=== PATIENT | male | born 1970 | race Caucasian/White ===

== ENCOUNTER 2018-01-22 11:16 | Emergency (ER) | payer OTHER ==
[~2018-01-22] VITALS: Ht 182.9 cm; Wt 106.6 kg
[~2018-01-22 11:16] MED LIST: ACETAMINOPHEN-1 EAC1 PO; ADDERALL 30 MG30 MG; ADDERALL 30 MG30 MG PO; ALBUTEROL2.5 MG/0.1; ALBUTEROL2.5 MG/31 INH; AMITRIPTYLINE H25 M2 PO; AMITRIPTYLINE H25 M3 PO; ATENOLOL 50 MG50 M1 PO; ATENOLOL 50MG T50 M1 PO; CLEOCIN HCL150 M1; CLEOCIN HCL150 MG PO; CLEOCIN HCL300 MG PO; ERYTHROMYCIN250 MG PO; FLOMAX0.4 MG; FLOMAX0.4 MG PO; HYDROCODONE-AP1 EAC6 PO; IBUPROFEN 800800 MG PO; INDOMETHACIN 2525 MG PO; LIDOCAINE VISC100 M1 SWISH&SPIT; LIDODERM 5%1 PATC1 TRANSDERM; LISINOPRIL20 MG PO; MOBIC15 MG PO; NOHOMEMEDICATIONS; NORCO 5-325 TA1 EACH PO; NORFLEX100 MG PO; ONDANSETRON HCL4 M2 PO; PRINIVIL20 MG PO; PROVENTIL; TAMSULOSIN HCL0.4 M1; TAMSULOSIN HCL0.4 M1 PO; TOPROL XL100 MG PO; TOPROL XL50 MG PO; TRAMADOL 50 MG50 MG PO; ULTRAM 50MG TAB50 MG PO; WELLBUTRIN XL150 MG PO; WELLBUTRIN75 MG PO; ZOFRAN ODT4 MG PO; ZOFRAN4 MG PO; [UNRECOGNIZED DRUG - OTHER]
[2018-01-22 12:46] LABS: URINE BILIRUBIN NEGATIVE (Negative); URINE BLOOD NEGATIVE (Negative); URINE CLARITY CLEAR; URINE COLOR YELLOW; URINE GLUCOSE-RANDOM* NEGATIVE (Negative); URINE KETONES NEGATIVE (Negative); URINE LEUKOCYTES-REFLEX NEGATIVE (Negative); URINE NITRITE-REFLEX NEGATIVE (Negative); URINE PROTEIN (DIPSTICK) NEGATIVE (Negative); URINE UROBILINOGEN 0.2 E.U./dl (0.2-1.0)
[2018-01-22 13:00] LABS: ABSOLUTE NEUTROPHILS 5.9 thou/uL (1.4-8.2); BASOPHILS 0.3 % (0.0-2.0); EOSINOPHILS 0.6 % (0.0-3.0); HEMOGLOBIN 15.9 gm/dL (14.0-18.0); MCHC 35.4 g/dL (28.0-37.0); MCV 96.1 fL (80.0-100.0); MONOCYTES 6.1 % (1.0-8.0); PLATELET COUNT 263 thou/uL (150-400); RBC 4.69 mil/uL (4.50-6.00); RDW 12.8 % (10.5-14.5); WBC 7.8 thou/uL (4.0-11.0)
[2018-01-22 13:22] LABS: CALCIUM 8.8 mg/dL (8.5-10.1); CREATININE 0.9 mg/dL (0.7-1.3); POTASSIUM 4.1 mmol/L (3.5-5.1)
[2018-01-22 13:27] LABS: ALBUMIN 3.7 g/dL (3.4-5.0); TOTAL BILIRUBIN 0.3 mg/dL (<0.1-1.0); TOTAL PROTEIN 6.8 g/dL (6.4-8.2)
[2018-01-22] MEDS ORDERED: TRAMADOL 50 MG50 MG PO (13:33)
[2018-01-22 14:07] VITALS: BP 152/78
== END 2018-01-22 14:08 | disposition home or self-care (01) ==
LOC: ER 11:16
PROVIDERS: Physician Assistant
DX: R10.9 Unspecified abdominal pain (principal); R31.9 Hematuria, unspecified; I10 Essential (primary) hypertension; G43.909 Migraine, unspecified, not intractable, without status migrainosus; F17.210 Nicotine dependence, cigarettes, uncomplicated; Z88.0 Allergy status to penicillin; Z88.2 Allergy status to sulfonamides; Z88.5 Allergy status to narcotic agent; Z88.6 Allergy status to analgesic agent

== ENCOUNTER 2018-04-11 14:01 | Emergency (ER) | payer OTHER ==
[~2018-04-11] VITALS: Ht 182.9 cm; Wt 106.6 kg
[~2018-04-11 14:01] MED LIST changes: +LEVSIN0.125 MG PO; +NORVASC10 MG PO
[2018-04-11 14:02] VITALS: BP 161/92
[2018-04-11] MEDS ORDERED: CLEOCIN HCL150 MG PO (14:27)
[2018-04-12] MEDS ORDERED: LISINOPRIL20 MG PO (06:24)
== END 2018-04-11 14:52 | disposition home or self-care (01) ==
LOC: ER 14:01
DX: K02.9 Dental caries, unspecified (principal); I10 Essential (primary) hypertension; G43.909 Migraine, unspecified, not intractable, without status migrainosus; F90.9 Attention-deficit hyperactivity disorder, unspecified type; F17.210 Nicotine dependence, cigarettes, uncomplicated; Z88.5 Allergy status to narcotic agent; Z88.0 Allergy status to penicillin; Z88.2 Allergy status to sulfonamides; Z88.6 Allergy status to analgesic agent; Z88.8 Allergy status to other drugs, medicaments and biological substances; Z87.442 Personal history of urinary calculi

== ENCOUNTER 2018-04-12 06:16 | Emergency (ER) | payer OTHER ==
[~2018-04-12] VITALS: Ht 182.9 cm; Wt 106.6 kg
[2018-04-12] MEDS ORDERED: LISINOPRIL20 MG PO (06:24)
[2018-04-12 07:21] LABS: HEMATOCRIT 41.3 % (42.0-52.0); HEMOGLOBIN 14.6 gm/dL (14.0-18.0); MCH 34.1 pg (26.0-34.0); MCHC 35.3 g/dL (28.0-37.0); MCV 96.6 fL (80.0-100.0); RBC 4.27 mil/uL (4.50-6.00); RDW 12.9 % (10.5-14.5)
[2018-04-12 07:29] LABS: CALCIUM 8.8 mg/dL (8.5-10.1); POTASSIUM 3.6 mmol/L (3.5-5.1)
[2018-04-12 07:42] LABS: URINE BILIRUBIN NEGATIVE (Negative); URINE BLOOD NEGATIVE (Negative); URINE CLARITY CLEAR; URINE COLOR YELLOW; URINE GLUCOSE-RANDOM* NEGATIVE (Negative); URINE KETONES NEGATIVE (Negative); URINE LEUKOCYTES-REFLEX NEGATIVE (Negative); URINE NITRITE-REFLEX NEGATIVE (Negative); URINE PROTEIN (DIPSTICK) NEGATIVE (Negative); URINE SPECIFIC GRAVITY 1.025 (1.005-1.035); URINE UROBILINOGEN 0.2 E.U./dl (0.2-1.0)
[2018-04-12 08:00] VITALS: BP 155/89
== END 2018-04-12 08:08 | disposition home or self-care (01) ==
LOC: ER 06:16
PROVIDERS: Emergency Medicine
DX: R30.0 Dysuria (principal); R11.10 Vomiting, unspecified; M54.9 Dorsalgia, unspecified; F17.210 Nicotine dependence, cigarettes, uncomplicated; I10 Essential (primary) hypertension; G43.909 Migraine, unspecified, not intractable, without status migrainosus; Z88.8 Allergy status to other drugs, medicaments and biological substances; Z88.5 Allergy status to narcotic agent; Z88.6 Allergy status to analgesic agent; Z88.0 Allergy status to penicillin; Z88.2 Allergy status to sulfonamides; Z87.442 Personal history of urinary calculi; Z90.89 Acquired absence of other organs

== ENCOUNTER 2018-11-05 11:15 | Emergency (ER) | payer OTHER ==
[~2018-11-05] VITALS: Ht 182.9 cm; Wt 99.8 kg
[2018-11-05 11:56] LABS: URINE BILIRUBIN NEGATIVE (Negative); URINE BLOOD TRACE (Negative); URINE CLARITY CLEAR; URINE COLOR YELLOW; URINE GLUCOSE-RANDOM* NEGATIVE (Negative); URINE KETONES NEGATIVE (Negative); URINE LEUKOCYTES-REFLEX NEGATIVE (Negative); URINE NITRITE-REFLEX NEGATIVE (Negative); URINE PROTEIN (DIPSTICK) NEGATIVE (Negative); URINE SPECIFIC GRAVITY 1.025 (1.005-1.035); URINE UROBILINOGEN 0.2 E.U./dl (0.2-1.0)
[2018-11-05 12:58] VITALS: BP 151/86
== END 2018-11-05 13:19 | disposition left against medical advice (07) ==
LOC: ER 11:15
PROVIDERS: Nurse Practitioner Family
DX: R10.9 Unspecified abdominal pain (principal); Z76.5 Malingerer [conscious simulation]; F17.210 Nicotine dependence, cigarettes, uncomplicated; I10 Essential (primary) hypertension; G43.909 Migraine, unspecified, not intractable, without status migrainosus; F90.9 Attention-deficit hyperactivity disorder, unspecified type; Z88.8 Allergy status to other drugs, medicaments and biological substances; Z88.5 Allergy status to narcotic agent; Z88.6 Allergy status to analgesic agent; Z88.0 Allergy status to penicillin; Z88.2 Allergy status to sulfonamides; Z87.442 Personal history of urinary calculi; Z90.89 Acquired absence of other organs

== ENCOUNTER 2019-02-06 19:12 | Emergency (ER) | payer OTHER ==
[~2019-02-06] VITALS: Ht 182.9 cm; Wt 104.3 kg
[2019-02-06 19:32] VITALS: BP 182/102
== END 2019-02-06 20:25 | disposition home or self-care (01) ==
LOC: ER 19:12
DX: K02.9 Dental caries, unspecified (principal); I10 Essential (primary) hypertension; G43.909 Migraine, unspecified, not intractable, without status migrainosus; F17.210 Nicotine dependence, cigarettes, uncomplicated; Z87.442 Personal history of urinary calculi; Z88.0 Allergy status to penicillin; Z88.5 Allergy status to narcotic agent; Z88.6 Allergy status to analgesic agent; Z88.8 Allergy status to other drugs, medicaments and biological substances

== ENCOUNTER 2019-03-28 13:39 | Emergency (ER) | payer OTHER ==
[~2019-03-28] VITALS: Ht 182.9 cm; Wt 99.3 kg
[2019-03-28 13:40] VITALS: BP 170/93
[2019-03-28] MEDS ORDERED: ORAL ANALGESIC9 GM TOP ×2 (14:09)
== END 2019-03-28 15:00 | disposition home or self-care (01) ==
LOC: ER 13:39
DX: K00.7 Teething syndrome (principal); G43.909 Migraine, unspecified, not intractable, without status migrainosus; K08.89 Other specified disorders of teeth and supporting structures; F17.210 Nicotine dependence, cigarettes, uncomplicated; I10 Essential (primary) hypertension; F90.9 Attention-deficit hyperactivity disorder, unspecified type; Z88.5 Allergy status to narcotic agent; Z88.6 Allergy status to analgesic agent; Z88.8 Allergy status to other drugs, medicaments and biological substances; Z88.2 Allergy status to sulfonamides; Z88.0 Allergy status to penicillin; Z87.442 Personal history of urinary calculi; Z90.89 Acquired absence of other organs

== ENCOUNTER 2019-03-30 15:47 | Emergency (ER) | payer OTHER ==
[~2019-03-30] VITALS: Ht 182.9 cm; Wt 99.3 kg
[~2019-03-30 15:47] MED LIST changes: +ORAL ANALGESIC9 GM TOP
[2019-03-30] MEDS ORDERED: BACTRIM DS TAB1 EACH PO (17:42)
[2019-03-30] MEDS ORDERED: KEFLEX500 M1 PO ×3 (17:46→17:47)
[2019-03-30 18:02] VITALS: BP 154/103
== END 2019-03-30 18:00 | disposition home or self-care (01) ==
LOC: ER 15:47
DX: L03.115 Cellulitis of right lower limb (principal); G43.909 Migraine, unspecified, not intractable, without status migrainosus; F90.9 Attention-deficit hyperactivity disorder, unspecified type; F17.210 Nicotine dependence, cigarettes, uncomplicated; Z88.6 Allergy status to analgesic agent; Z88.0 Allergy status to penicillin; Z88.2 Allergy status to sulfonamides; Z88.1 Allergy status to other antibiotic agents; Z88.8 Allergy status to other drugs, medicaments and biological substances; Z87.442 Personal history of urinary calculi; Z98.890 Other specified postprocedural states

== ENCOUNTER 2019-06-19 10:30 | Emergency (ER) | payer OTHER ==
[~2019-06-19] VITALS: Ht 182.9 cm; Wt 100.2 kg
[~2019-06-19 10:30] MED LIST changes: +BACTRIM DS TAB1 EACH PO; +KEFLEX500 M1 PO
[2019-06-19 11:01] LABS: URINE BILIRUBIN NEGATIVE (Negative); URINE BLOOD 1+ (Negative); URINE CLARITY CLEAR; URINE COLOR YELLOW; URINE GLUCOSE-RANDOM* NEGATIVE (Negative); URINE KETONES NEGATIVE (Negative); URINE LEUKOCYTES-REFLEX NEGATIVE (Negative); URINE NITRITE-REFLEX NEGATIVE (Negative); URINE PROTEIN (DIPSTICK) TRACE (Negative)
[2019-06-19 11:03] LABS: WBC 7.1 thou/uL (4.0-11.0)
[2019-06-19 11:05] LABS: HEMATOCRIT 44.6 % (42.0-52.0); HEMOGLOBIN 15.5 gm/dL (14.0-18.0); MCH 33.9 pg (26.0-34.0); MCHC 34.8 g/dL (28.0-37.0); MCV 97.2 fL (80.0-100.0); RBC 4.59 mil/uL (4.50-6.00); RDW 12.9 % (10.5-14.5)
[2019-06-19 11:09] LABS: CALCIUM 9.8 mg/dL (8.5-10.1); CREATININE 0.9 mg/dL (0.7-1.3); POTASSIUM 3.4 mmol/L (3.5-5.1)
[2019-06-19 11:15] LABS: ALBUMIN 4.3 g/dL (3.4-5.0); TOTAL BILIRUBIN 0.4 mg/dL (<0.1-1.0); TOTAL PROTEIN 8.4 g/dL (6.4-8.2)
[2019-06-19 11:29] LABS: CASTS None Seen /LPF (None Seen); SQUAMOUS None Seen /LPF (0-3); URINE WBC-REFLEX 0-5 Rare /HPF (0-5)
[2019-06-19 11:30] LABS: BACTERIA-REFLEX 1-9 Few /HPF (None Seen); CRYSTALS None Seen /LPF (None Seen); MUCUS 0-3 Light strn/LPF (None Seen); URINE RBC 0-2 Rare /HPF (0-2)
[2019-06-19 11:43] LABS: ABSOLUTE NEUTROPHILS 5.5 thou/uL (1.4-8.2); PLATELET COUNT 267 thou/uL (150-400); PLATELET ESTIMATE NORMAL
[2019-06-19 12:26] VITALS: BP 153/103
== END 2019-06-19 13:08 | disposition home or self-care (01) ==
LOC: ER 10:30
PROVIDERS: Physician Assistant
DX: N23 Unspecified renal colic (principal); I10 Essential (primary) hypertension; G43.909 Migraine, unspecified, not intractable, without status migrainosus; F90.9 Attention-deficit hyperactivity disorder, unspecified type; F17.210 Nicotine dependence, cigarettes, uncomplicated; Z90.89 Acquired absence of other organs; Z88.6 Allergy status to analgesic agent; Z88.5 Allergy status to narcotic agent; Z88.2 Allergy status to sulfonamides; Z88.8 Allergy status to other drugs, medicaments and biological substances; Z88.0 Allergy status to penicillin

== ENCOUNTER 2019-07-17 15:34 | Emergency (ER) | payer OTHER ==
[~2019-07-17] VITALS: Ht 182.9 cm; Wt 100.2 kg
[2019-07-17 15:35] VITALS: BP 162/103
[2019-07-17] MEDS ORDERED: KEFLEX500 M1 PO (16:43)
== END 2019-07-17 16:45 | disposition home or self-care (01) ==
LOC: ER 15:34
DX: K08.89 Other specified disorders of teeth and supporting structures (principal); Z76.5 Malingerer [conscious simulation]; I10 Essential (primary) hypertension; F90.9 Attention-deficit hyperactivity disorder, unspecified type; G43.909 Migraine, unspecified, not intractable, without status migrainosus; F17.210 Nicotine dependence, cigarettes, uncomplicated; Z88.6 Allergy status to analgesic agent; Z88.5 Allergy status to narcotic agent; Z88.0 Allergy status to penicillin; Z88.1 Allergy status to other antibiotic agents; Z88.8 Allergy status to other drugs, medicaments and biological substances; Z87.442 Personal history of urinary calculi

== ENCOUNTER 2019-10-04 12:34 | Emergency (ER) | payer OTHER ==
[~2019-10-04] VITALS: Ht 182.9 cm; Wt 99.8 kg
[2019-10-04 13:42] LABS: URINE BILIRUBIN NEGATIVE (Negative); URINE BLOOD TRACE (Negative); URINE CLARITY CLEAR; URINE COLOR YELLOW; URINE GLUCOSE-RANDOM* NEGATIVE (Negative); URINE KETONES NEGATIVE (Negative); URINE LEUKOCYTES-REFLEX NEGATIVE (Negative); URINE NITRITE-REFLEX NEGATIVE (Negative); URINE PROTEIN (DIPSTICK) NEGATIVE (Negative); URINE SPECIFIC GRAVITY >= 1.030 (1.005-1.035); URINE UROBILINOGEN 0.2 E.U./dl (0.2-1.0)
[2019-10-04] MEDS ORDERED: DEPAKOTE500 MG PO (13:49)
[2019-10-04] MEDS ORDERED: LOVASTATIN 20 M20 MG PO (13:49)
[2019-10-04] MEDS ORDERED: ADDERALL 30 MG30 MG PO (13:49)
[2019-10-04 14:23] LABS: ABSOLUTE NEUTROPHILS 3.5 thou/uL (1.4-8.2); BASOPHILS 0.4 % (0.0-2.0); EOSINOPHILS 1.3 % (0.0-3.0); HEMATOCRIT 43.2 % (42.0-52.0); HEMOGLOBIN 14.6 gm/dL (14.0-18.0); LYMPHOCYTES 23.3 % (24.0-44.0); MCH 32.4 pg (26.0-34.0); MCHC 33.7 g/dL (28.0-37.0); MCV 96.1 fL (80.0-100.0); PLATELET COUNT 260 thou/uL (150-400); RDW 12.8 % (10.5-14.5); WBC 5.6 thou/uL (4.0-11.0)
[2019-10-04 14:32] LABS: CALCIUM 8.7 mg/dL (8.5-10.1); POTASSIUM 3.7 mmol/L (3.5-5.1)
[2019-10-04 14:39] LABS: TOTAL BILIRUBIN 0.3 mg/dL (<0.1-1.0); TOTAL PROTEIN 8.1 g/dL (6.4-8.2)
[2019-10-04 16:49] VITALS: BP 147/91
[2019-10-04] MEDS ORDERED: TRAMADOL 50 MG50 MG PO (17:00)
== END 2019-10-05 00:08 | disposition home or self-care (01) ==
LOC: ER 12:34
PROVIDERS: Emergency Medicine
DX: N20.0 Calculus of kidney (principal); I10 Essential (primary) hypertension; G43.909 Migraine, unspecified, not intractable, without status migrainosus; F90.9 Attention-deficit hyperactivity disorder, unspecified type; F17.210 Nicotine dependence, cigarettes, uncomplicated; Z87.442 Personal history of urinary calculi; Z90.49 Acquired absence of other specified parts of digestive tract; Z88.0 Allergy status to penicillin; Z88.1 Allergy status to other antibiotic agents; Z88.6 Allergy status to analgesic agent; Z88.8 Allergy status to other drugs, medicaments and biological substances

== ENCOUNTER 2019-10-07 08:17 | Inpatient (IN) | payer OTHER ==
[~2019-10-07] VITALS: Ht 182.9 cm; Wt 97.8 kg
[~2019-10-07 08:17] MED LIST changes: +DEPAKOTE500 MG PO; +LOVASTATIN 20 M20 MG PO
[2019-10-07 08:23] VITALS: BP 179/110
[2019-10-07 08:34] LABS: URINE BILIRUBIN NEGATIVE (Negative); URINE BLOOD TRACE (Negative); URINE CLARITY CLEAR; URINE COLOR YELLOW; URINE GLUCOSE-RANDOM* NEGATIVE (Negative); URINE KETONES NEGATIVE (Negative); URINE LEUKOCYTES-REFLEX NEGATIVE (Negative); URINE NITRITE-REFLEX NEGATIVE (Negative); URINE PROTEIN (DIPSTICK) NEGATIVE (Negative)
[2019-10-07 08:40] LABS: ABSOLUTE NEUTROPHILS 3.4 thou/uL (1.4-8.2); BASOPHILS 0.5 % (0.0-2.0); EOSINOPHILS 1.5 % (0.0-3.0); HEMATOCRIT 45.3 % (42.0-52.0); HEMOGLOBIN 15.3 gm/dL (14.0-18.0); LYMPHOCYTES 20.3 % (24.0-44.0); MCH 32.3 pg (26.0-34.0); MCHC 33.7 g/dL (28.0-37.0); MONOCYTES 8.6 % (1.0-8.0); PLATELET COUNT 257 thou/uL (150-400); POLYS 69.1 % (36.0-66.0); RBC 4.72 mil/uL (4.50-6.00); RDW 12.8 % (10.5-14.5); WBC 4.9 thou/uL (4.0-11.0)
[2019-10-07 08:44] LABS: AMP/METHAMP Negative (Negative); BARBITURATES Negative (Negative); BENZODIAZEPINES Negative (Negative); COCAINE Negative (Negative); METHADONE Negative (Negative); OPIATES POSITIVE (Negative); PCP Negative (Negative)
[2019-10-07 08:47] LABS: ANION GAP 8 mmol/L (7-16); BUN 17 mg/dL (7-18); CHLORIDE 100 mmol/L (98-107); CO2 28 mmol/L (21-32); CREATININE 0.9 mg/dL (0.7-1.3); GLUCOSE 96 mg/dL (74-106); SODIUM 136 mmol/L (136-145)
[2019-10-07 08:54] LABS: ALBUMIN 4.5 g/dL (3.4-5.0); DIRECT BILIRUBIN < 0.1 mg/dL (<0.1-0.2); SGOT 15 U/L (15-37); SGPT 24 U/L (30-65); TOTAL BILIRUBIN 0.4 mg/dL (<0.1-1.0); TOTAL PROTEIN 8.6 g/dL (6.4-8.2)
[2019-10-07 15:57] VITALS: BP 157/92
--- NOTE | 2019-10-07 17:03 | NUR ---
PT ARRIVED ON THE UNIT @ 1455 WITH THE ASSIST OF AN NURSING AID. PT ALERT AND ORIENTED X 4. NO COMPLICATIONS NOTED POST TRANSFER. PT COMPLAINS OF MEDICATIONS DOSE AVIALABLE, DR GILL INFORMED, NEW ORDERS RECIEVED.
[2019-10-07 20:00] VITALS: BP 168/89
[2019-10-08] VITALS: BP 141/75
[2019-10-08 02:06] LABS: GLYCOHEMOGLOBIN (HGB A1C) 5.3 % (4.8-5.6)
[2019-10-08 04:00] VITALS: BP 141/75; BP 143/80
--- NOTE | 2019-10-08 04:51 | NUR ---
ASSESSMENT: PT REMAIN ALERT AND ORIENT TIMES FOUR. UP AD ALISSA TO TOILET. VSS, AFEBRILE. C/O LEFT FLANK PAIN. PRN PAIN MEDS GIVEN WITH PARTIAL RELIEF PER PT. PT'S S/O AT THE BEDSIDE. PT REFUSED US EARLIER DURING THE DAY AND STATE THAT HE WOULD THINK ABOUT HAVING US OF CAROTID TODAY, " LONG THEY DON'T WAKE HIM UP TOO EARLY". PT IS ALSO SCHEDULED FOR MRI WELL. PT REFUSES TO FOLLOW A HEART HEALTHY DIET. DENIES HEMATURIA. DID HAVE A LARGE FOUL SMELLING BM. PT DID NOT WANT TO HAVE A FLU VACCINATION. PT WENT ASLEEP AT APPROXIMATELY 0130. NIH SCORE WAS 2 + DRIFT UPPER/LOWER EXTREMITIES. SR PER MONITOR. WILL CONTINUE TO MONITOR.
[2019-10-08 05:56] LABS: CHOLESTEROL 120 mg/dL (<200); HDL CHOLESTEROL 33 mg/dL (>40); LDL CHOLESTEROL 71 mg/dL (<100); TC:HDL 3.6 Ratio (Not establshd); TRIGLYCERIDE 82 mg/dL (<150); VLDL 16 mg/dL (<40)
[2019-10-08 05:57] LABS: SERUM ASSESSMENT Clear
[2019-10-08 08:07] VITALS: BP 141/79
--- NOTE | 2019-10-08 11:43 | 2DMMODE ---
[facility] [address] [place] [address] 2 D/M-MODE ECHOCARDIOGRAM Name: NATALIE THOMAS Room #: 250-P ADM IN M.R.#: [id number] Admission: 10/07/19 Attend Phys: Pina Álvarez MD Discharge: Date of : 66 Report #: [id number] THIS REPORT FOR: cc: [facility] - Clinic physician unknown [facility] - Clinic physician unknown Rashaun Mcintosh MD ~ APPROVED REPORT Study performed: 10/08/2019 09:55:36 EXAM: Comprehensive 2D, Doppler, and color-flow Echocardiogram Patient Location: ICU Room #: 250 Status: routine BSA: 2.20 HR: 89 bpm BP: 140/80 mmHg Rhythm: NSR Other Information Study Quality: Good Indications CVA/TIA HTN urgency Echo Enhancing Agent Indication: Rule out Shunt Agent(s) / Amount(s) Used: Agitated Saline 6 cc 2D Dimensions RVDd: 37.13 mm IVSd: 11.63 (7-11mm) LVOT Diam: 24.12 (18-24mm) LVDd: 43.36 mm PWd: 12.21 (7-11mm) Ascending Ao: 30.96 (22-36mm) LVDs: 33.51 (25-40mm) Aortic Root: 34.56 mm IVC: 18.00 mm Volumes Left Atrial Volume (Systole) Single Plane 4CH: 23.26 mL Single Plane 2CH: 114.58 mL LA ESV Index: 27.00 mL/m2 Aortic Valve [facility] [address] [place] [address] 2 D/M-MODE ECHOCARDIOGRAM Name: NATALIE THOMAS Room #: 250-P [facility] IN .R.#: [id number] Admission: 10/07/19 Attend Phys: Pina Álvarez, Discharge: Date of : 66 Report #: [id number] AoV Peak Haider.: 1.19 m/s AO Peak Gr.: 5.71 mmHg LVOT Max P.07 mmHg LVOT Max V: 1.01 m/s BERTHA Vmax: 3.85 cm2 Mitral Valve E/A Ratio: 1.3 MV Decel. Time: 138.03 ms MV E Max Haider.: 0.84 m/s MV A Haider.: 0.63 m/s MV PHT: 40.03 ms IVRT: 121.11 ms Pulmonary Valve PV Peak Haider.: 1.06 m/s PV Peak Gr.: 4.52 mmHg Pulmonary Vein P Vein S: 0.56 m/s P Vein A: 0.26 m/s P Vein D: 0.48 m/s P Vein A Dur.: 92.3 msec P Vein S/D Ratio: 1.17 Tricuspid Valve RAP Estimate: 5.00 mmHg Left Ventricle The left ventricle is normal size. Mild concentric left ventricular hypertrophy. The left ventricular systolic function is normal. The left ventricular ejection fraction is within the normal range. LVEF is 55%. The left ventricular diastolic function is normal. Right Ventricle The right ventricle is normal size. The right ventricular systolic function is normal. Atria The left atrium size is normal. No shunting by contrast bubble injection. Right atrium is at the upper limits of normal. Aortic Valve The aortic valve is normal in structure. No aortic regurgitation is present. There is no aortic valvular stenosis. Mitral Valve The mitral valve is normal in structure. Moderate mitral regurgitation. No evidence of mitral valve stenosis. [facility] [place] [address] 2 D/M-MODE ECHOCARDIOGRAM Name: NATALIE THOMAS Room #: 250-P [facility] IN M.R.#: [id number] Admission: 10/07/19 Attend Phys: Pina Álvarez, Discharge: Date of : 66 Report #: [id number] Tricuspid Valve The tricuspid valve is normal in structure. There is no tricuspid valve regurgitation noted. Unable to assess PA pressure. Pulmonic Valve The pulmonary valve is normal in structure. Trace pulmonic regurgitation. Great Vessels The aortic root is normal in size. IVC is normal in size and collapses >50% with inspiration. Pericardium There is no pericardial effusion. <Conclusion> The left ventricle is normal size. LVEF is 55%. The aortic valve is normal in structure. The mitral valve is normal in structure. Moderate mitral regurgitation. The tricuspid valve is normal in structure. There is no tricuspid valve regurgitation noted. Unable to assess PA pressure. The pulmonary valve is normal in structure. Trace pulmonic regurgitation. There is no pericardial effusion. No shunting by contrast bubble injection. <ELECTRONICALLY SIGNED> By: Rashaun Mcintosh MD 10/08/19 1142 1142 1142 Rashaun Mcintosh MD /INF
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
[2019-10-08] MEDS ORDERED: CLARITIN10 M2 PO (13:47)
[2019-10-08] MEDS ORDERED: CLOPIDOGREL75 MG PO (13:48)
[2019-10-08] MEDS ORDERED: LIPITOR40 MG PO (13:49)
[2019-10-08] MEDS ORDERED: GABAPENTIN 100100 MG PO (13:49)
[2019-10-08] MEDS ORDERED: FLONASE 0.05%50 MCG NASAL (13:50)
[2019-10-08] MEDS ORDERED: PEPCID20 MG PO (13:50)
[2019-10-08] MEDS ORDERED: AZITHROMYCIN500 MG PO (13:51)
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
[2019-10-08 16:03] VITALS: BP 141/79
--- NOTE | 2019-10-10 12:33 | EKG ---
[facility] [place] [address] ELECTROCARDIOGRAM REPORT Name: NATALIE THOMAS EDWIN Room #: 250-P [facility] IN M.R.#: [id number] Admission: 10/07/19 Attend Phys: Pina Álvarez MD Discharge: 10/08/19 Date of : 66 Report #: [id number] THIS REPORT FOR: cc: [facility] - Clinic physician unknown [facility] - Clinic physician unknown Lázaro Reece MD [facility] ~ THIS REPORT FOR: //name// [facility] ED Test Date: 2019-10-07 Test Time: 08:36:11 Pat Name: NATALIE THOMAS Department: Room: [facility] Gender: M 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: [id number] : 1970 Requested By: Lisbet Weaver Order Number: [id number] MD: Lázaro Reece Measurements Intervals [place] Rate: 98 P: 54 VT: 186 QRS: 43 QRSD: 93 T: 48 QT: 380 QTc: 486 Interpretive Statements Sinus rhythm Left ventricular hypertrophy Borderline prolonged QT interval Compared to ECG 06/23/2016 23:25:26 No significant changes Electronically Signed On 10-08-2019 7:46:36 JOB CHECKER by Lázaro Reece [email or web address] <ELECTRONICALLY SIGNED> By: Lázaro Reece MD, [facility] 10/08/19 0746 Lázaro Reece MD, [facility] /EPI
== END 2019-10-08 16:44 | disposition home or self-care (01) | DRG 69 ==
LOC: ER 08:17 → EROBS 13:25 → ICU 13:25
PROVIDERS: Emergency Medicine; ADMIT Internal Medicine
DX: G45.9 Transient cerebral ischemic attack, unspecified (principal); Z96.0 Presence of urogenital implants; I10 Essential (primary) hypertension; G43.909 Migraine, unspecified, not intractable, without status migrainosus; F90.9 Attention-deficit hyperactivity disorder, unspecified type; F17.210 Nicotine dependence, cigarettes, uncomplicated; I16.0 Hypertensive urgency; E66.3 Overweight; Z79.899 Other long term (current) drug therapy; Z88.6 Allergy status to analgesic agent; Z86.73 Personal history of transient ischemic attack (TIA), and cerebral infarction without residual deficits; Z87.442 Personal history of urinary calculi; Z88.8 Allergy status to other drugs, medicaments and biological substances; Z88.2 Allergy status to sulfonamides; Z88.0 Allergy status to penicillin; Z83.3 Family history of diabetes mellitus; Z82.3 Family history of stroke; Z68.29 Body mass index [BMI] 29.0-29.9, adult; Z71.6 Tobacco abuse counseling
CPT/HCPCS: 10203

== ENCOUNTER 2019-10-29 15:05 | Emergency (ER) | payer OTHER ==
[~2019-10-29] VITALS: Ht 182.9 cm; Wt 99.8 kg
[~2019-10-29 15:05] MED LIST changes: +AZITHROMYCIN500 MG PO; +CLARITIN10 M2 PO; +CLOPIDOGREL75 MG PO; +FLONASE 0.05%50 MCG NASAL; +GABAPENTIN 100100 MG PO; +LIPITOR40 MG PO; +PEPCID20 MG PO
[2019-10-29 15:46] LABS: URINE BILIRUBIN NEGATIVE (Negative); URINE BLOOD NEGATIVE (Negative); URINE CLARITY CLEAR; URINE COLOR YELLOW; URINE GLUCOSE-RANDOM* NEGATIVE (Negative); URINE KETONES NEGATIVE (Negative); URINE LEUKOCYTES-REFLEX NEGATIVE (Negative); URINE NITRITE-REFLEX NEGATIVE (Negative); URINE PROTEIN (DIPSTICK) NEGATIVE (Negative)
[2019-10-29 17:04] VITALS: BP 158/95
[2019-10-29] MEDS ORDERED: GABAPENTIN100 MG PO (17:10)
== END 2019-10-29 17:17 | disposition home or self-care (01) ==
LOC: ER 15:05
PROVIDERS: Emergency Medicine
DX: R10.9 Unspecified abdominal pain (principal); I10 Essential (primary) hypertension; G43.909 Migraine, unspecified, not intractable, without status migrainosus; F17.210 Nicotine dependence, cigarettes, uncomplicated; Z88.6 Allergy status to analgesic agent; Z88.1 Allergy status to other antibiotic agents; Z88.0 Allergy status to penicillin; Z88.2 Allergy status to sulfonamides; Z88.8 Allergy status to other drugs, medicaments and biological substances; Z86.73 Personal history of transient ischemic attack (TIA), and cerebral infarction without residual deficits

== ENCOUNTER 2019-11-28 17:26 | Emergency (ER) | payer OTHER ==
[~2019-11-28] VITALS: Ht 182.9 cm; Wt 99.8 kg
[~2019-11-28 17:26] MED LIST changes: +GABAPENTIN100 MG PO
[2019-11-28 17:28] VITALS: BP 125/77
[2019-11-28] MEDS ORDERED: NEURONTIN 300M300 M2 PO (17:58)
== END 2019-11-28 18:19 | disposition home or self-care (01) ==
LOC: ER 17:26
DX: K02.9 Dental caries, unspecified (principal); I10 Essential (primary) hypertension; G43.909 Migraine, unspecified, not intractable, without status migrainosus; F17.210 Nicotine dependence, cigarettes, uncomplicated; Z79.899 Other long term (current) drug therapy; Z88.6 Allergy status to analgesic agent; Z88.0 Allergy status to penicillin; Z88.2 Allergy status to sulfonamides; Z86.73 Personal history of transient ischemic attack (TIA), and cerebral infarction without residual deficits; Z87.442 Personal history of urinary calculi

== ENCOUNTER 2019-12-09 13:43 | Emergency (ER) | payer OTHER ==
[~2019-12-09] VITALS: Ht 182.9 cm; Wt 104.3 kg
[~2019-12-09 13:43] MED LIST changes: +NEURONTIN 300M300 M2 PO
[2019-12-09 13:50] VITALS: BP 192/118
[2019-12-09] MEDS ORDERED: ULTRAM 50MG TAB50 MG PO (14:17)
== END 2019-12-09 15:22 | disposition home or self-care (01) ==
LOC: ER 13:43
DX: K08.89 Other specified disorders of teeth and supporting structures (principal); I10 Essential (primary) hypertension; G43.909 Migraine, unspecified, not intractable, without status migrainosus; F90.9 Attention-deficit hyperactivity disorder, unspecified type; F17.210 Nicotine dependence, cigarettes, uncomplicated; Z87.442 Personal history of urinary calculi; Z86.73 Personal history of transient ischemic attack (TIA), and cerebral infarction without residual deficits; Z90.49 Acquired absence of other specified parts of digestive tract; Z88.0 Allergy status to penicillin; Z88.1 Allergy status to other antibiotic agents; Z88.6 Allergy status to analgesic agent; Z88.8 Allergy status to other drugs, medicaments and biological substances

== ENCOUNTER 2019-12-16 14:30 | Emergency (ER) | payer OTHER ==
[~2019-12-16] VITALS: Ht 182.9 cm; Wt 104.3 kg
[2019-12-16 14:33] VITALS: BP 183/123
[2019-12-16] MEDS ORDERED: MOBIC15 MG PO (15:00)
== END 2019-12-16 15:13 | disposition home or self-care (01) ==
LOC: ER 14:30
DX: K08.89 Other specified disorders of teeth and supporting structures (principal); I10 Essential (primary) hypertension; G43.909 Migraine, unspecified, not intractable, without status migrainosus; F17.210 Nicotine dependence, cigarettes, uncomplicated; Z90.89 Acquired absence of other organs; Z86.73 Personal history of transient ischemic attack (TIA), and cerebral infarction without residual deficits; Z87.442 Personal history of urinary calculi; Z88.5 Allergy status to narcotic agent; Z88.6 Allergy status to analgesic agent; Z88.0 Allergy status to penicillin; Z88.1 Allergy status to other antibiotic agents; Z88.8 Allergy status to other drugs, medicaments and biological substances

== ENCOUNTER 2019-12-24 14:49 | Emergency (ER) | payer OTHER ==
[~2019-12-24] VITALS: Ht 182.9 cm; Wt 104.3 kg
[2019-12-24 14:57] VITALS: BP 113/81
[2019-12-24] MEDS ORDERED: NEURONTIN 300M300 M2 PO (15:45)
== END 2019-12-24 15:55 | disposition home or self-care (01) ==
LOC: ER 14:49
DX: S43.401A Unspecified sprain of right shoulder joint, initial encounter (principal); G89.29 Other chronic pain; K08.89 Other specified disorders of teeth and supporting structures; I10 Essential (primary) hypertension; G43.909 Migraine, unspecified, not intractable, without status migrainosus; F90.9 Attention-deficit hyperactivity disorder, unspecified type; F17.210 Nicotine dependence, cigarettes, uncomplicated; Z86.73 Personal history of transient ischemic attack (TIA), and cerebral infarction without residual deficits; Z90.89 Acquired absence of other organs; Z79.899 Other long term (current) drug therapy; Z88.8 Allergy status to other drugs, medicaments and biological substances; Z88.6 Allergy status to analgesic agent; Z88.0 Allergy status to penicillin; Z88.2 Allergy status to sulfonamides; X50.0XXA Overexertion from strenuous movement or load, initial encounter; Y93.89 Activity, other specified; Y92.098 Other place in other non-institutional residence as the place of occurrence of the external cause; Y99.8 Other external cause status

== ENCOUNTER 2020-01-11 10:59 | Emergency (ER) | payer OTHER ==
[~2020-01-11] VITALS: Ht 182.9 cm; Wt 104.3 kg
[2020-01-11 11:05] VITALS: BP 184/105
[2020-01-11 11:34] LABS: URINE BILIRUBIN NEGATIVE (Negative); URINE BLOOD NEGATIVE (Negative); URINE CLARITY CLEAR; URINE COLOR YELLOW; URINE GLUCOSE-RANDOM* NEGATIVE (Negative); URINE KETONES NEGATIVE (Negative); URINE LEUKOCYTES-REFLEX NEGATIVE (Negative); URINE NITRITE-REFLEX NEGATIVE (Negative); URINE PROTEIN (DIPSTICK) NEGATIVE (Negative); URINE SPECIFIC GRAVITY 1.025 (1.005-1.035)
== END 2020-01-11 12:03 | disposition home or self-care (01) ==
LOC: ER 10:59
PROVIDERS: Emergency Medicine
DX: R10.9 Unspecified abdominal pain (principal); R31.9 Hematuria, unspecified; I10 Essential (primary) hypertension; G43.909 Migraine, unspecified, not intractable, without status migrainosus; F90.9 Attention-deficit hyperactivity disorder, unspecified type; F17.210 Nicotine dependence, cigarettes, uncomplicated; Z87.442 Personal history of urinary calculi; Z86.73 Personal history of transient ischemic attack (TIA), and cerebral infarction without residual deficits; Z90.89 Acquired absence of other organs; Z79.899 Other long term (current) drug therapy; Z88.8 Allergy status to other drugs, medicaments and biological substances; Z88.5 Allergy status to narcotic agent; Z88.6 Allergy status to analgesic agent; Z88.0 Allergy status to penicillin; Z88.2 Allergy status to sulfonamides

== ENCOUNTER 2020-01-12 14:46 | Emergency (ER) | payer OTHER ==
[~2020-01-12] VITALS: Ht 182.9 cm; Wt 104.3 kg
[2020-01-12 16:11] VITALS: BP 128/86
== END 2020-01-12 16:05 | disposition home or self-care (01) ==
LOC: ER 14:46
DX: M25.511 Pain in right shoulder (principal); I10 Essential (primary) hypertension; G43.909 Migraine, unspecified, not intractable, without status migrainosus; F90.9 Attention-deficit hyperactivity disorder, unspecified type; F17.210 Nicotine dependence, cigarettes, uncomplicated; Z86.73 Personal history of transient ischemic attack (TIA), and cerebral infarction without residual deficits; Z87.442 Personal history of urinary calculi; Z90.89 Acquired absence of other organs; Z79.899 Other long term (current) drug therapy; Z88.8 Allergy status to other drugs, medicaments and biological substances; Z88.5 Allergy status to narcotic agent; Z88.0 Allergy status to penicillin; Z88.6 Allergy status to analgesic agent; Z88.2 Allergy status to sulfonamides

== ENCOUNTER 2020-02-10 14:31 | Emergency (ER) | payer OTHER ==
[~2020-02-10] VITALS: Ht 182.9 cm; Wt 104.8 kg
[2020-02-10 15:02] LABS: ABSOLUTE NEUTROPHILS 4.2 thou/uL (1.4-8.2); BASOPHILS 0.1 % (0.0-2.0); EOSINOPHILS 1.4 % (0.0-3.0); HEMATOCRIT 42.7 % (42.0-52.0); HEMOGLOBIN 15.2 gm/dL (14.0-18.0); MCH 34.2 pg (26.0-34.0); MCHC 35.6 g/dL (28.0-37.0); MCV 96.3 fL (80.0-100.0); MONOCYTES 6.9 % (1.0-8.0); PLATELET COUNT 282 thou/uL (150-400); POLYS 72.6 % (36.0-66.0); RBC 4.43 mil/uL (4.50-6.00); RDW 13.3 % (10.5-14.5); WBC 5.8 thou/uL (4.0-11.0)
[2020-02-10 15:03] LABS: URINE BILIRUBIN NEGATIVE (Negative); URINE BLOOD NEGATIVE (Negative); URINE CLARITY SL CLOUDY; URINE COLOR YELLOW; URINE GLUCOSE-RANDOM* NEGATIVE (Negative); URINE KETONES NEGATIVE (Negative); URINE LEUKOCYTES-REFLEX NEGATIVE (Negative); URINE NITRITE-REFLEX NEGATIVE (Negative); URINE PROTEIN (DIPSTICK) NEGATIVE (Negative)
[2020-02-10 15:06] LABS: ANION GAP 7 mmol/L (7-16); BUN 22 mg/dL (7-18); CHLORIDE 105 mmol/L (98-107); CO2 27 mmol/L (21-32); CREATININE 0.9 mg/dL (0.7-1.3); GLUCOSE 93 mg/dL (74-106); POTASSIUM 3.8 mmol/L (3.5-5.1); SODIUM 139 mmol/L (136-145)
[2020-02-10 15:11] LABS: AMP/METHAMP Negative (Negative); BARBITURATES Negative (Negative); BENZODIAZEPINES Negative (Negative); COCAINE Negative (Negative); METHADONE Negative (Negative); OPIATES Negative (Negative); PCP Negative (Negative)
[2020-02-10 15:15] LABS: TROPONIN-I <0.06 ng/mL (<0.06)
[2020-02-10 15:28] VITALS: BP 146/84
--- NOTE | 2020-02-11 07:43 | EKG ---
[facility] [place] [address] ELECTROCARDIOGRAM REPORT Name: NATALIE THOMAS [id number] Admission: 02/10/20 Attend Phys: Discharge: 02/10/20 Date of : 66 Report #: [id number] THIS REPORT FOR: cc: [facility] Lázaro Reece MD [facility] THIS REPORT FOR: //name// [facility] ED Test Date: 2020-02-10 Test Time: 14:35:47 Pat Name: NATALIE THOMAS Department: Room: Gender: M Embroidery Specialist: [id number] : 1970 Requested By: George Leyva Order Number: [id number] MD: Lázaro Reece Measurements Intervals [place] Rate: 95 P: 43 [place]: 189 QRS: 24 QRSD: 95 T: 38 QT: 368 QTc: 463 Interpretive Statements Sinus rhythm ST elev, probable normal early repol pattern Compared to ECG 10/07/2019 08:36:11 No significant change was found Electronically Signed On 02-11-2020 7:42:38 CDT by Lázaro Reece [email or web address] <ELECTRONICALLY SIGNED> By: Lázaro Reece MD, FACC 02/11/20 0742 1435 1435 Lázaro Reece MD, [facility] /EPI
== END 2020-02-10 15:31 | disposition home or self-care (01) ==
LOC: ER 14:31
PROVIDERS: Emergency Medicine
DX: M79.602 Pain in left arm (principal); M79.605 Pain in left leg; R42 Dizziness and giddiness; R53.1 Weakness; R47.81 Slurred speech; R41.0 Disorientation, unspecified; I10 Essential (primary) hypertension; G43.909 Migraine, unspecified, not intractable, without status migrainosus; F90.9 Attention-deficit hyperactivity disorder, unspecified type; F17.210 Nicotine dependence, cigarettes, uncomplicated; Z87.442 Personal history of urinary calculi; Z86.73 Personal history of transient ischemic attack (TIA), and cerebral infarction without residual deficits; Z90.89 Acquired absence of other organs; Z79.899 Other long term (current) drug therapy; Z88.8 Allergy status to other drugs, medicaments and biological substances; Z88.5 Allergy status to narcotic agent; Z88.2 Allergy status to sulfonamides; Z88.6 Allergy status to analgesic agent; Z88.0 Allergy status to penicillin

== ENCOUNTER → 2020-05-04 | Emergency (ER) | payer OTHER ==
[~2020-05-04] VITALS: Ht 182.9 cm; Wt 106.6 kg
[2020-05-04 14:54] VITALS: BP 124/92
== END ==
LOC: ER 13:35
DX: M79.2 Neuralgia and neuritis, unspecified (principal); Z76.0 Encounter for issue of repeat prescription; I10 Essential (primary) hypertension; G43.909 Migraine, unspecified, not intractable, without status migrainosus; F90.9 Attention-deficit hyperactivity disorder, unspecified type; F17.210 Nicotine dependence, cigarettes, uncomplicated; Z86.73 Personal history of transient ischemic attack (TIA), and cerebral infarction without residual deficits; Z90.89 Acquired absence of other organs; Z79.899 Other long term (current) drug therapy; Z88.8 Allergy status to other drugs, medicaments and biological substances; Z88.5 Allergy status to narcotic agent; Z88.6 Allergy status to analgesic agent; Z88.0 Allergy status to penicillin; Z88.2 Allergy status to sulfonamides

== ENCOUNTER 2021-03-01 23:18 | Emergency (ER) | payer OTHER ==
[~2021-03-01] VITALS: Ht 182.9 cm; Wt 113.0 kg
[2021-03-01] MEDS ORDERED: CLINDAMYCIN (23:30)
[2021-03-02 01:05] VITALS: BP 179/100
== END 2021-03-02 01:00 | disposition home or self-care (01) ==
LOC: ER 23:18
DX: K08.89 Other specified disorders of teeth and supporting structures (principal); F17.210 Nicotine dependence, cigarettes, uncomplicated; I10 Essential (primary) hypertension; G43.909 Migraine, unspecified, not intractable, without status migrainosus; Z88.6 Allergy status to analgesic agent; Z88.0 Allergy status to penicillin; Z88.1 Allergy status to other antibiotic agents; Z88.2 Allergy status to sulfonamides; Z88.5 Allergy status to narcotic agent; Z90.89 Acquired absence of other organs; Z98.890 Other specified postprocedural states; Z86.73 Personal history of transient ischemic attack (TIA), and cerebral infarction without residual deficits

== ENCOUNTER 2021-05-18 16:45 | Emergency (ER) | payer OTHER ==
[~2021-05-18] VITALS: Ht 182.9 cm; Wt 113.0 kg
[~2021-05-18 16:45] MED LIST changes: +CLINDAMYCIN
[2021-05-18 16:46] VITALS: BP 175/111
[2021-05-18] MEDS ORDERED: NEURONTIN 400400 M1 PO (16:49)
== END 2021-05-18 17:52 | disposition home or self-care (01) ==
LOC: ER 16:45
DX: K08.89 Other specified disorders of teeth and supporting structures (principal); G43.909 Migraine, unspecified, not intractable, without status migrainosus; I10 Essential (primary) hypertension; Z88.6 Allergy status to analgesic agent; Z88.5 Allergy status to narcotic agent; Z88.0 Allergy status to penicillin; Z88.1 Allergy status to other antibiotic agents; Z90.89 Acquired absence of other organs; Z87.442 Personal history of urinary calculi